=== PATIENT | female | born 1975 | race Caucasian/White ===

== ENCOUNTER 2024-05-14 00:05 | Day surgery (SDC) | payer BC, SELFPAY ==
[2024-04-27 13:31] VITALS: BMI 30.2
--- OUTSIDE RECORDS SUMMARY | 2024-05-14 00:09 | XMS_ITS | Referral Summary ---
Author Organization [facility] Address [address] [place] [address] Care Team Providers Care Body Shop Supervisor Name Role Phone Sonal Rust MD Unavailable Beverly Kwok Primary Care Provider [phone] Allergies No known active allergies Medications azelaic acid 15 % gel APPLY SMALL AMOUNT TO ENTIRE FACE EVERY DAY 12/10/19 22 Active fexofenadine (MAGDALENE) 180 mg tablet Take 1 tablet (180 mg total) by mouth daily Active lisinopriL (PRINIVIL,ZESTRIL) 20 mg tablet Take 1 tablet (20 mg total) by mouth daily 10/26/19 23 Active ondansetron ODT (ZOFRAN-ODT) 4 mg disintegrating tablet DISSOLVE 1 TABLET ON TOP OF THE TONGUE WHERE IT WILL DISSOLVE, THEN SWALLOW 4 TIMES DAILY 01/09/20 23 Active Wegovy 2.4 mg/0.75 mL auto-injector INJECT 1 SYRINGE SUBCUTANEOUSLY ONCE A WEEK 01/30/20 23 Active magnesium oxide (MAG-OX) 415 mg (250 mg elemental) tablet Active vit C-s.jenkins-celery- grape sd [id number] mg capsule Take 500 mg by mouth Active norethindrone-e.es tradioL-iron (Candi 24 Fe) 1 mg-20 mcg(24) /75 mg (4) tablet,chewable Take 1 tablet by mouth daily 84 tablet 3 01/09/20 24 Active Active Problems Problem Noted Date Diagnosed Date Screening for cervical cancer 01/17/2022 Overview (02/14/2023): 02/06/23 - ECC negative 01/06/23 - Pap negative, HPV 16 +, Non 16/18 + 01/04/22 - Pap - Negative, HPV positive, HPV 16 positive, HPV 18 negative, CT/NG & STD panel - negative Surveillance for control, oral contracepti ves 01/04/2022 Assessment & Plan (01/04/2022 3:28 PM CDT): Rx given today for oral contraceptives. Reviewed risks, benefits, side effects and use. Questions were answered and the patient seems to have a good understands of the risks and benefits. Well woman exam with routine gynecological exam 01/04/2022 Assessment & Plan (01/09/2024 11:24 AM CDT): Due to patient's history HPV were performed. Recommend self-breast exam and continued annual mammogram.. She is going to see if they have an appointment today. She is scheduled for a baseline colonoscopy. Refill on OCPs sent for 1 year. Since she is not having menses we will check her hormone levels next year and she was advised not to take the OCP for approximately 4 weeks before coming in. Assessment & Plan (01/06/2023 8:51 AM CDT): Pap smear and HPV were performed. Her 2 previous Pap smears had normal cytology but were both HPV 16 positive. Recommend self-breast exam and she is a mammogram scheduled. She is planning on a colonoscopy next year. OCP sent to pharmacy. Follow up 1 year. Assessment & Plan (01/04/2022 3:28 PM CDT): The patient was here for her well woman exam. Recommended healthy lifestyle choices including exercise, diet, & multivitamins. Recommend mammograms yearly and monthly self breast exams. Discussed importance of routine screenings with PCP regularly. Screen for STD (sexually transmitted disease) Assessment & Plan (01/04/2022 3:29 PM CDT): Check gc/ct and STD panel today. Reviewed limitations on testing today. Recommended continiued condom use. Abnormal mammogram 05/18/2021 Overview (06/19/2021): 11/2020 R breast Dx marion/US results Probably Benign.... recommend R breast US in 6 months. 06/19 R breast US results Benign... recommend to return to yearly screening mammograms. Social History Tobacco Use Types Packs/Day Years Used Date Smoking Tobacco: Never Passive Smoke Exposure: Past Smokeless Tobacco: Never AUDIT-C Answer Date Recorded Q1: How often do you have a drink containing alc ohol? 2-4 times a month 02/05/2023 Average Number of Drinks Not on file 023 Frequency of Binge Drinking Not on file 10/2022 Comments No Sex and Gender Information Value Date Recorded Sex Assigned at Not on file Legal Sex Female 8:56 PM POLL WATCHER Gender Identity Not on file Sexual Orientation Not on file Last Filed Vital Signs Vital Sign Reading Time Taken Comments Blood Pressure 122/76 02/06/2024 11:08 AM POLL WATCHER Pulse - - Temperature - - Respiratory Rate - - Oxygen Saturation - - Inhaled Oxygen Concentration - - Weight 78.9 kg (174 lb) 02/06/2024 11:08 AM POLL WATCHER Height 162.6 cm (5' 4 ) 02/06/2024 11:08 AM POLL WATCHER Body Mass Index 29.87 02/06/2024 11:08 AM POLL WATCHER Plan of Treatment Not on file Procedures Procedure Name Priority Date/Time Associated Diagnosis Comments PAP WITH REFLEX TO HIGH RISK HPV Routine 02/06/2024 11:39 AM POLL WATCHER SCREENING MAMMOGRAM BILATERAL W OMEGA Schedule Routine, Read Routine (OP Routine) 01/09/2024 11:29 AM CDT Screening mammogram, encounter for HEPATITIS C ANTIBODY Routine 01/04/2022 3:13 PM CDT Screen for STD (sexually transmitted disease) from Last 3 Months or Most Recently Relevant to Health Maintenance Results * Pap with reflex to High Risk HPV and Genotyping (Cytology Component) (02/06/2024 11:39 AM POLL WATCHER) Pap test 02/06/2024 11:3 9 AM POLL WATCHER 02/09/2024 11:41 AM POLL WATCHER Narrative 02/17/2024 11:04 AM POLL WATCHER EPIC results best viewed via link to PDF [address] [address] Tele: Chelo Forbes MD - Mate Fourth CYTOLOGY REPORT Note to Patients: This report may contain a detailed description of human tissue sent by a health care provider to the laboratory for pathologic evaluation. The content of this report is essential for diagnosis and may provide important critical findings. This information may be unfamiliar to patients to review without a medical professional present. It is advised that the patient review this report in the presence of a health care provider who can answer questions and explain the details. Patient Name: CIARAN DANIELLE Address: [address] [place] [address]- Gender: F : 1975 (Age: 48) Service: Location: N : [id number] [facility] #: [id number] Patient Type: [facility] SPECIMEN Taken: 02/06/2024 Reported: 02/17/2024 Physician(s): Sonal Rust M.D. FINAL DIAGNOSIS: SOURCE OF SPECIMEN - ThinPrep Pap w/ reflex HPV: STATEMENT OF ADEQUACY Source: Cervical/Endocervical - Satisfactory for interpretation - Endocervical /Transformation Zone component present - Case screened using computer assisted imaging technology GENERAL CATEGORIZATION: - Negative for intraepithelial lesion or malignancy INTERPRETATION: - Blood present letw/02/17/2024 11:04Franchesca James RN, CT (ASCP) Report Reviewed and Electronically Signed By Franchesca James RN, CT (ASCP)Clerical Data Follow A; G0145 CLINICAL DIAGNOSIS AND HISTORY Menstrual History: None Contraceptive History: Control Pill REPORT IMAGES AND/OR SCANNED DOCUMENTS ONLY VIEWABLE IN PDF FORMAT The Pap test is a screening test used to aid in the detection of cervical cancer and its precursors. It should not be the sole means by which malignant and premalignant lesions are diagnosed. Both false negative and false positive results may occur. It also has poor sensitivity for the detection of endometrial lesions and should not be used to evaluate suspected endometrial abnormalities. For these reasons it is most important to obtain Pap tests at regular intervals, as recommended by your physician or nurse practitioner. Frozen section, operating room consultation, gross examination and dissection, and case sign out may have been performed in part or completely in the following laboratories: [facility], [facility], [place] [address] [facility], [address] [place] [address]. Sonal Rust MD LAB CYTOLOGY ORDERABLES Final Result * Screening Mammogram Bilateral W Omega (01/09/2024 11:29 AM CDT) Anatomical Region Laterality Modality Breast Bilateral Mammography Narrative 01/09/2024 12:39 PM CDT Examination: Screening Mammogram Bilateral W Omega: 01/09/24 Clinical: Screening mammogram, encounter for. Prior Study Comparisons: Comparison was made to the prior available relevant studies at the time of interpretation. Findings: Screening Mammogram Bilateral W Omega Bilateral No significant masses, malignant type calcifications, skin thickening, nipple retraction, or significant lymphadenopathy is noted in either breast. Computer Aided Detection was utilized for the interpretation of this study. There are scattered areas of fibroglandular density. The patient will be notified of results by letter. Impression: BI-RADS ATLAS category (overall): 2 - Benign There is no mammographic evidence of malignancy. Routine Screening Mammogram in 1 Yr is recommended for bilateral Overall Assessment: 2 - Benign Self Screening Mammogram IMG MAMMO PROCEDURES Fi nal Result * Hepatitis C antibody (01/04/2022 3:13 PM CDT) Hep C Ab Nonreactive Nonreactive [facility] Comment: Interpretive Data Nonreactive: Antibodies to HCV not detected. Does NOT exclude the possibility of recent exposure to HCV. Equivocal: Equivocal for HCV antibodies. Supplemental molecular testing will be automatically performed to determine infection status in accordance with current CDC screening recommendations. Reactive: Positive for HCV antibodies. This may represent current or past HCV infection. Supplemental molecular testing will be automatically performed to determine current infection status in accordance with current CDC screening recommendations. Interpretive data was last revised on 2019. Blood 01/04/2022 3:13 PM CDT 01/04/2022 6:05 PM CDT Amita Croft NP LAB MICROBIOLOGY - GENERAL ORD ERABLES Final Result [facility] [address] [place] [address] from Last 3 Months or Most Recently Relevant to Health Maintenance Insurance [employer] [place] [employer] [place] [employer] Care Teams Body Shop Supervisor Relationship Specialty Start Date End Date Beverly Kwok PA [address] [place], [place] [id number] PCP - General Family Practice 12/30/22 Sonal Rust MD [address] [facility] [address] [place] [address] Consulting Physician Obstetrics and Gynecology 11/30/21
--- OUTSIDE RECORDS SUMMARY | 2024-05-14 00:09 | XMS_ITS | Clinical Summary ---
Author Organization [facility] Address [address] [place] [address] Care Team Providers Care Oxidation Operator Name Role Phone Sonal Rust MD Unavailable [phone] Beverly Kwok Primary Care Provider [phone] Allergies No known active allergies Medications azelaic [...] elemental) tablet Active vit C-s.jenkins-celery- grape sd [id number] mg capsule Take 500 mg by mouth [...] recommend to return to yearly screening mammograms. Surgical History Surgery Date Site/Laterality Comments SINUS SURGERY Medical History Medical History Date Comments Condyloma acuminata HPV (human papilloma virus) anogenital infection 2020: HPV 16+ on pap Hypertension Family History Medical History Relation Name Comments Diabetes Father Hypertension Father Hyperlipidemia Father's Sister Brain Aneurysm Maternal Grandfather Polio Maternal Grandmother Alcohol abuse Mother Bipolar disorder Mother Colon cancer Other PG Uncle Heart attack Paternal Grandfather Diabetes Paternal Grandmother Relation Name Status Comments Father Alive Father's Sister Alive Maternal Grandfather Maternal Grandmother Mother Alive Other PG Uncle Paternal Grandfather Paternal Grandmother Social History Tobacco Use Types Packs/Day Years [...] on file Legal Sex Female 8:56 PM PHOTOENGRAVING PRINTER Gender Identity Not on file Sexual Orientation Not on file Obstetrics History Para Term AB IAB SAB Ectopic Multiple Livin g Live Births 1 0 1 1 Date Outcome GA Total Labor Labor/2nd/3rd Weight Sex Type Anes PTL Julieta A1 A5 Name Clin 996 IAB 5w0d Comments Hpv + Last Filed Vital Signs Vital Sign Reading Time Taken Comments Blood Pressure 122/76 02/06/2024 11:08 AM PHOTOENGRAVING PRINTER Pulse - - Temperature - - Respiratory Rate - - Oxygen Saturation - - Inhaled Oxygen Concentration - - Weight 78.9 kg (174 lb) 02/06/2024 11:08 AM PHOTOENGRAVING PRINTER Height 162.6 cm (5' 4 ) 02/06/2024 11:08 AM PHOTOENGRAVING PRINTER Body Mass Index 29.87 02/06/2024 11:08 AM PHOTOENGRAVING PRINTER Plan of Treatment Health Maintenance Due Date Last Done Comments Colon Cancer Screening-Colonoscopy 1975 Depression Screening 1975 Hepatitis B Screening 1994 DTaP/Tdap/Td Vaccine (2 - Td or Tdap) 05/14/2020 05/14/2010 Covid-19 Vaccine (3 - season) 2023 02/12/2021, 01/22/2021 Influenza Vaccine (#1) 2023 Breast Cancer Screening-Mammogram 01/08/2025 01/09/2024, 01/06/2023, 01/06/2023, Additional history exists Regular Well Visit/Exam 18-64 01/08/2025 01/09/2024, 01/06/2023, 01/04/2022 Cervical Cancer Screening 02/05/20252023, 01/09/2024, 01/09/2024, Additional history exists Hepatitis C Screening Completed 01/04/2022 , 08/11/2017, 08/09/2016 Pneumococcal vaccine <65 Aged Out No longer eligible based on patient's age to complete this topic Procedures Procedure Name Priority Date/Time Associated Diagnosis Comments PAP WITH REFLEX TO HIGH RISK HPV Routine 02/06/2024 11:39 AM PHOTOENGRAVING PRINTER SCREENING MAMMOGRAM BILATERAL W OMEGA Schedule Routine, Read Routine (OP Routine) 01/09/2024 11:29 AM CDT Screening mammogram, encounter for HEPATITIS C ANTIBODY Routine 01/04/2022 3:13 PM CDT Screen for STD (sexually transmitted disease) from Last 3 Months or Most Recently Relevant to Health Maintenance Results * Pap with reflex to High Risk HPV and Genotyping (Cytology Component) (02/06/2024 11:39 AM PHOTOENGRAVING PRINTER) Pap test 02/06/2024 11:3 9 AM PHOTOENGRAVING PRINTER 02/09/2024 11:41 AM PHOTOENGRAVING PRINTER Narrative 02/17/2024 11:04 AM PHOTOENGRAVING PRINTER [facility] results best viewed via link to PDF [place] [address] [address] Tele: Chelo Forbes MD - Photographic Equipment Technician CYTOLOGY REPORT Note to Patients: This report [...] the details. Patient Name: CIARAN DANIELLE Address: [address] [place] [address]- Gender: F : 1975 (Age: 48) Service: Location: [facility] : [id number] Hospital #: [id number] Patient Type: [facility] SPECIMEN Taken: 02/06/2024 Reported: 02/17/2024 Physician(s): Sonal [...] part or completely in the following laboratories: [facility], [address] [facility], [place] [address] [facility], [address] [place] [address], [place] [address]. Sonal Rust MD LAB CYTOLOGY ORDERABLES Final [...] CDT) Hep C Ab Nonreactive Nonreactive [facility] Comment: Interpretive Data Nonreactive: Antibodies to HCV [...] - GENERAL ORD ERABLES Final Result [facility] [address] Department [place] [address] from Last 3 Months or Most Recently Relevant to Health Maintenance Insurance [employer] [place] Care Teams Oxidation Operator Relationship Specialty Start Date End Date Beverly Kwok PA [address] [place] [id number] PCP - General Family Practice 12/30/22 Sonal Rust MD [address] [facility] [address] [place] [address] Consulting Physician Obstetrics and Gynecology 11/30/21
--- OUTSIDE RECORDS SUMMARY | 2024-05-14 00:09 | XMS_ITS | Referral Summary ---
Author Organization [facility] [employer] Address [address] [place] [address] Care Team Providers Care Behavioral Consultant Name Role Phone Unavailable Primary Care Provider Unavailabl e Source Comments [facility] [employer],non-owned Affiliates and Associated Physician Practices is amultiple site organization consisting of ambulatory clinics and hospital sitesin [place], [place], [place] and [place]. This disclosure is being madepursuant to the Care Everywhere program and may not contain all information available regarding this patient. Last updated 17.[facility] [employer] Allergies No known active allergies Medications * Be aware that medications may not be up to date on this document. Alwaysverify current medications with the patient. Medication Sig Dispensed Refills Start Date End Date Status Norethin Julian-Eth Estrad-FE (MIBELAS 24 FE PO) Active Loratadine (CLARITIN PO) Active Social History Tobacco Use Types Packs/Day Years Used Date Smoking Tobacco: Never Smokeless Tobacco: Never Sex and Gender Information Value Date Recorded Sex Assigned at Not on file Gender Identity Not on file Sexual Orientation Not on file Last Filed Vital Signs Vital Sign Reading Time Taken Comments Blood Pressure 128/80 01/31/2017 2:08 PM CDT Pulse 80 01/31/2017 2:08 PM CDT Temperature 36.8 C (98.2 F) 01/31/2017 2:08 PM CDT Respiratory Rate 16 01/31/2017 2:08 PM CDT Oxygen Saturation 98% 01/31/2017 2:08 PM CDT Inhaled Oxygen Concentration - - Weight 81.6 kg (180 lb) 01/31/2017 2:08 PM CDT Height 162.6 cm (5' 4 ) 01/31/2017 2:08 PM CDT Body Mass Index 30.9 01/31/2017 2:08 PM CDT Plan of Treatment Not on file
--- OUTSIDE RECORDS SUMMARY | 2024-05-14 00:09 | XMS_ITS | Clinical Summary ---
Author Organization [facility] Address [address] [place] [address] Care Team Providers Care Rotary Planer Set Up Operator Name Role Phone Sonal Rust MD Unavailable Beverly Kwok PA-C Primary Care Provider [phone] Allergies No known active allergies Medications BRANCH 24 FE 1-20 MG-MCG(24) Chew Tab Chew 1 tablet by mouth daily. 0 Active Azelaic Acid 15 % gel APPLY SMALL AMOUNT TO ENTIRE FACE 1 2 TIMES DAILY 0 Active fexofenadine 180 MG tablet Take 180 mg by mouth daily. Active amoxicillin (AMOXIL) 500 MG capsule take 1 capsule by mouth 3 times a day until finished 3 Active fluconazole (DIFLUCAN) 150 MG tablet Take 150 mg by mouth once. 3 Active semaglutide-weigh t management (WEGOVY) 0.25 mg/dose injection (PEN)Indications: Class 1 obesity due to excess calories with serious comorbidity and body mass index (BMI) of 34.0 to 34.9 in adult Inject 0.25 mg into the skin once a week. For 4 weeks,Then follow up in office with Dr Antonio 2 mL 3 Active metoprolol tartrate (LOPRESSOR) 25 MG tabletIndications :Benign hypertension Take 1/2 tablet by mouth twice per day 90 tablet 1 3 Active Active Problems Problem Noted Date Diagnosed Date Left elbow pain 10/13/2023 Screening for cervical cancer 01/17/2022 Overview (05/24/2022): 01/04/22 - Pap - Negative, HPV positive, HPV 16 positive, HPV 18 negative, CT/NG & STD panel - negative Screen for STD (sexually transmitted disease) Overview (05/24/2022): Last Assessment & Plan: Check gc/ct and STD panel today. Reviewed limitations on testing today. Recommended continiued condom use. Surveillance for control, oral contracepti ves 01/04/2022 Overview (05/24/2022): Last Assessment & Plan: Rx given today for oral contraceptives. Reviewed risks, benefits, side effects and use. Questions were answered and the patient seems to have a good understands of the risks and benefits. Abnormal mammogram 05/18/2021 Overview (05/24/2022): 11/2020 R breast Dx marion/US results Probably Benign.... recommend R breast US in 6 months. 06/19 R breast US results Benign... recommend to return to yearly screening mammograms. Multiple thyroid nodules 03/08/2020 BMI 32.0-32.9,adult 03/08/2020 Benign hypertension 02/01/2015 Condyloma acuminatum 04/26/2011 Allergic rhinitis 04/17/2011 Resolved Problems Problem Noted Date Diagnosed Date Resolved Date Cervical high risk human pap illomavirus (HPV) DNA test positive 10/13/2020 10/13/2020 Situational depression 02/01/201503/08 Immunizations Name Administration Dates Next Due PFIZER COVID-19 (ORIGINAL FO RMULATION, PURPLE CAP) mRNA, LNP-S, PF, 30 MCG/0.3 ML DOSE 02/12/2021,01/22/2021 Tdap (Generic) 05/14/2010 Family History Medical History Relation Comments Diabetes Father Hypertension Father Cancer Mother Skin Cancer Depression Mother Relation Status Comments Father Alive Mother Alive Social History Tobacco Use Types Packs/Day Years Used Date Smoking Tobacco: Never Smokeless Tobacco: Never Tobacco Cessation:Counseling Given: Not Answered Alcohol Use Standard Drinks/Week Comments Yes 5 (1 standard drink = 0.6 oz pur e alcohol) Occasional/Social PHQ-2 Answer Date Recorded Patient Health Questionnaire-2 Score 0 05/24/2022 Comments No Sex and Gender Information Value Date Recorded Sex Assigned at Not on file Legal Sex Female 7:55 PM CDT Gender Identity Not on file Sexual Orientation Not on file Last Filed Vital Signs Vital Sign Reading Time Taken Comments Blood Pressure 139/85 05/24/2022 11:10 AM HOUSE PIPING INSPECTOR Pulse 71 05/24/2022 11:10 AM HOUSE PIPING INSPECTOR Temperature 37.5 C (99.5 F) 05/24/2022 11:10 AM HOUSE PIPING INSPECTOR Respiratory Rate 17 05/24/2022 11:1 0 AM HOUSE PIPING INSPECTOR Oxygen Saturation 97% 05/24/2022 11: 10 AM HOUSE PIPING INSPECTOR Inhaled Oxygen Concentration - - Weight 92.4 kg (203 lb 12.8 oz) 023 11:10 AM HOUSE PIPING INSPECTOR Height 162.6 cm (5' 4 ) 05/24/2022 11:1 0 AM HOUSE PIPING INSPECTOR Body Mass Index 34.98 05/24/2022 11:10 AM HOUSE PIPING INSPECTOR Plan of Treatment Health Maintenance Due Date Last Done Comments Colorectal Cancer Screening Colonoscopy (10 Years) 1975 Annual Physical 10/22/1979 Hepatitis B Vaccines (1 of 3 - 19+ 3-dose series) 10/22/1995 DTaP, Tdap and Td Vaccines (2 - Td or Tdap) 05/14/2020 05/14/2010 PHQ-2 (Physician Kapost) 05/24/2023 05/24/2022 COVID-19 Vaccine ( - season) 2023 02/12/2021, 01/22/2021 Influenza Adult (#1) 2023 PHQ-2 (Physician Kapost) 03/31/2024 05/24/2022 Mammogram Screening 01/06/2025 01/06/2023, 01/04/2022, 11/30/2020, Additional history exists Cervical Cancer Screening Pap with HPV Testing (Age 30 to 64) Every 5 Years 11/14/2025 11/14/2020 Cervical Cancer Screening Pap Smear (Age 30 to 64) Every 3 Years 01/06/2026 01/06/2023 Cervical Cancer Screening with HPV 01/06/2026 Hepatitis C Completed 03/08/2020 Meningococcal B Vaccine Aged Out No l onger eligible based on patient's age to complete this topic Meningococcal Vaccine Aged Out No marcello zully eligible based on patient's age to complete this topic Pneumococcal Vaccine: Pediatrics (0 to 5 Years) and At-Risk Patients (6 to 64 Years) Aged Out No longer eligible based on patient's age to complete this topic RSV Immunizations Under 20 Months Aged Out No longer eligible based on patient's age to complete this topic Procedures Procedure Name Priority Date/Time Associated Diagnosis Comments OUTSIDE CYTOPATH CERV/VAG INTERPRET (PAP) Routine 11/14/2020 HEPATITIS C ANTIBODY Routine 03/08/2020 8:40 AM HOUSE PIPING INSPECTOR Encounter for hepatitis C screening test for low risk patient from Last 3 Months or Most Recently Relevant to Health Maintenance Results * PAP SMEAR WITH HPV (11/14/2020) 11/14/2020 us Documents Scanned SCANNING Final Result [facility] * HEPATITIS C ANTIBODY (03/08/2020 8:40 AM HOUSE PIPING INSPECTOR) HEPATITIS C AB NON-REACTI VE NON-REACTI VE 03/08/2020 8:31 PM HOUSE PIPING INSPECTOR [facility] 03/08/2020 8:40 AM HOUSE PIPING INSPECTOR us Herb Tadeo MD LABORATORY Final Res ult [facility] [address] [place] [address], [place] [phone] from Last 3 Months or Most Recently Relevant [place] [address] [facility] Care Teams Rotary Planer Set Up Operator Relationship Specialty Start Date End Date Beverly Kwok PA-C [address] [place] [address] PCP - General PHYSICIAN BARBER APPRENTICE 10/08/23 Sonal Rust MD [address] [facility] [address] [place] [address] Consulting Physician OBLESLYN 03/08/20
--- OUTSIDE RECORDS SUMMARY | 2024-05-14 00:09 | XMS_ITS | Clinical Summary ---
Author Organization [facility] [employer] Address [address] [place] [address] Care Team Providers Care Concession Cashier Name Role Phone Unavailable Primary Care Provider Unavailabl e Source Comments [facility] [employer],non-owned Affiliates and Associated Physician Practices is amultiple site organization consisting of ambulatory clinics and hospital sitesin [place], [place], [place] and [place]. This disclosure is being madepursuant to the Care Everywhere program and may not contain all information available regarding this patient. Last updated 17.[facility] [employer] Allergies No known active allergies Medications * Be aware that medications may not be up to date on this document. Alwaysverify current medications with the patient. Medication Sig Dispensed Refills Start Date End Date Status Norethin Julian-Eth Estrad-FE (MIBELAS 24 FE PO) Active Loratadine (CLARITIN PO) Active Family History Medical History Relation Name Comments Diabetes - Type 2 Father Hypertension Father Cancer - Skin, Non Melanoma Mother Relation Name Status Comments Father Mother Social History Tobacco Use Types Packs/Day Years [...] 01/31/2017 2:08 PM CDT Plan of Treatment Health Maintenance Due Date Last Done Comments COLOGUARD (AGES 45-75) - COL ON CA SCREENING 1976 COLON MONITORING 1976 COLONOSCOPY - COLON CA SCREENING 1976 CT COLONOGRAPHY - COLON CA SCREENING 1976 Colorectal Cancer Screening 1976 FIT - COLON CA SCREENING 1976 FLEX SIG - COLON CA SCREENING 1976 LIPID TESTING 1976 MAMMOGRAM 1976 PAP SMEAR 1976 HIV SCREENING 10/22/1991 HEPATITIS C SCREENING 10/17/1994 DTAP/TDAP/TD VACCINES (1 - Tdap) 10/22/1995 HEPATITIS B VACCINE (1 of 3 - 19+ 3-dose series) 10/22/1995 SCREENING FOR DIABETES 01/31/2017 COVID-19 VACCINE (1 - 2023-2 5 season) 2023 INFLUENZA VACCINE (#1) 2023 DEPRESSION SCREENING 03/31/2024 ZOSTER VACCINE (1 of 2) 2026 HIB VACCINE Aged Out No longer eligi ble based on patient's age to complete this topic HPV VACCINE Aged Out No longer eligi ble based on patient's age to complete this topic MENINGOCOCCAL (Group B) VACCINE Aged Out No longer eligible based on patient's age to complete this topic MENINGOCOCCAL VACCINE Aged Out No marcello zully eligible based on patient's age to complete this topic PNEUMOCOCCAL VACCINE Aged Out No long er eligible based on patient's age to complete this topic
--- OUTSIDE RECORDS SUMMARY | 2024-05-14 00:09 | XMS_ITS | Clinical Summary ---
Author Organization [facility] Address [address] [place] [address] Care Team Providers Care Jira Developer Name Role Phone Unavailable Primary Care Provider Unavailabl e Allergies No known active allergies Medications fexofenadine (MAGDALENE ALLERGY) 180 mg Oral tablet Take 180 mg by mouth 1 time daily as needed. Active MINASTRIN 24 FE 1 mg-20 mcg(24) /75 mg (4) Oral Chew 12/09/2012 Active buPROPion (WELLBUTRIN) 100 mg tablet Take 1 Tablet (100 mg) by mouth daily. 30 Tablet 11 07/20/2015 Active hydrocortisone 1 % LotionIndicatio ns:Pityriasis rosea-like skin eruption Apply to affected area 2 times daily. 118 mL 0 11/23/2015 Active Active Problems Patient Care Coordination No te Formatting of this note migh t be different from the original. Resident PCP - KRUNAL MARC MD Problem Noted Date Diagnosed Date Major depression 02/01/2015 Benign hypertension 02/01/2015 Allergic rhinitis 04/17/2011 Resolved Problems Problem Noted Date Diagnosed Date Resolved Date Viral URI 01/02/2011 04/17/2011 Immunizations Immunization Administration Dates Next Due (ADACEL/BOOSTRIX)(10 YR UP) TDAP VACCINE, 0.5ML, IM 05/14/2010 Family History Medical History Relation Name Comments Diabetes Father Hypertension Father Bipolar Disorder Mother Relation Name Status Comments Father Maternal Grandfather Mother Alive Paternal Grandfather Sister Alive Social History Tobacco Use Types Packs/Day Years Used Date Smoking Tobacco: Never Smokeless Tobacco: Never Alcohol Use Standard Drinks/Week Comments No 0 (1 standard drink = 0.6 oz pur e alcohol) Comments No Sex and Gender Information Value Date Recorded Sex Assigned at Not on file Legal Sex 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 Gender Identity Not on file Sexual Orientation Not on file 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 Not on file Not on file Not on file Last Filed Vital Signs Vital Sign Reading Time Taken Comments Blood Pressure 112/76 12/15/2015 11:05 AM CDT Pulse 84 12/15/2015 11:05 AM CDT Temperature 36.9 C (98.4 F) 12/15/2015 11:05 AM CDT Respiratory Rate 18 12/31/2012 8:22 AM CDT Oxygen Saturation 98% 12/15/2015 11:05 AM CDT Inhaled Oxygen Concentration - - Weight 82.1 kg (181 lb) 12/15/2015 11:05 AM CDT Height 162.6 cm (5' 4 ) 11/30/2015 2:47 PM CDT Body Mass Index 31.07 11/30/2015 2:47 PM CDT Plan of Treatment Health Maintenance Due Date Last Done Comments HEPATITIS B VACCINES (1 of 3 - 19+ 3-dose series) 10/22/1995 CERVICAL CANCER SCREENING 2006 BREAST CANCER SCREENING 2016 DTAP/TDAP/TD VACCINES (2 - T d or Tdap) 05/14/2020 05/14/2010 COLORECTAL SCREENING 2021 Colorectal Cancer Screening 2021 FIT-DNA Q 3 years 2021 FIT/FOBT Q 1 year 2021 Flex Sig/CT Colonography Q 5 years 2021 INFLUENZA VACCINE (#1) 2023 PNEUMOCOCCAL VACCINE 0-64 YEARS Aged Out No longer eligible based on patient's age to complete this topic Insurance BCBS BLUE ACCESS/TRUE BLUE PPO
--- OUTSIDE RECORDS SUMMARY | 2024-05-14 00:09 | XMS_ITS | Patient Health Summary ---
Author Organization [facility] [employer] Address [address] [place] [address] Care Team Providers Care Journalism Professor Name Role Phone Unavailable Primary Care Provider Unavailabl e Note from [facility],non-owned Affiliates and Associated Physician Practices is amultiple site organization consisting of ambulatory clinics and hospital sitesin [place], [place], [place] and [place]. This disclosure is being madepursuant to the Care Everywhere program and may not contain all information available regarding this patient. Last updated 17.[facility] [employer] Allergies No known active allergies Medications * Be aware that medications may not be up to date on this document. Alwaysverify current medications with the patient. * Norethin Julian-Eth Estrad-FE (MIBELAS 24 FE PO) * Loratadine (CLARITIN PO) Social History Tobacco Use Types Packs/Day Years [...] Mass Index 30.9 01/31/2017 2:08 PM CDT Procedures * STREP A SCREEN - POINT OF CARE (AMB) STL(Performed 01/31/2017) Performed for Acute pharyngitis, unspecified etiology * CULTURE STREP GROUP A(Performed 01/31/2017) Performed for Acute pharyngitis, unspecified etiology Results * STREP A SCREEN - POINT OF CARE (AMB) STL (01/31/2017 2:31 PM CDT) Strep A Rapid POCT Negative Negative Strep A Internal Control Present Lot # [id number] Expiration Date 08 30 2018 Throat ENTIRE THROAT (SURFACE REGION OF NECK) / Unknown 01/31/2017 2:31 PM CDT Citlalli Galeano APRN-AIR POLLUTION INSPECTOR LAB - POINT OF CA RE ORDERABLES * CULTURE STREP GROUP A (01/31/2017 2:21 PM CDT) Beta-Strep Culture, Group A Only Negative [facility] ACCOUNT BILL Microbiology ENTIRE THROAT (SURFACE REGION OF NECK) / Unknown 01/31/2017 2:21 PM CDT 01/31/2017 Narrative Resulting Agency Comment [facility] [address] [id number] Citlalli Galeano APRN-AIR POLLUTION INSPECTOR LAB - MICROBIOLOG Y ORDERABLES [facility] ACCOUNT BILL [address] [place] [address]
[2024-05-14 06:13] VITALS: BP 132/80; PULSE 70; RESP 18; TEMP 36.6; O2SAT 99; BMI 29.7
[2024-05-14] MEDS: LACTATED RINGERS 1,000 ML 150 ML IV CONT (06:30)
--- NOTE | 2024-05-14 06:56 | WPDANESEPPF ---
Anes - Initial Pre Proc Eval Procedure: Operation Date: 05/14/24 07:30 Proposed Procedures p Screening Colonoscopy - Mikie Edmonds MD Date/Time: 05/14/24 06:56 Surgeon: Mikie Edmonds MD Pre Op Diagnosis: Neoplasm screening rectum/colon Patient Data Age: 48 Gender: F Height: 1.6 m Weight: 76 kg Last Vital Signs Temp 36.6 C 05/14/24 06:13 Pulse 70 05/14/24 06:13 Resp 18 05/14/24 06:13 BP 132/80 05/14/24 06:13 Pulse Ox 99 05/14/24 06:13 O2 Del Method Room Air 05/14/24 06:13 Allergies Allergy/AdvReac Type Severity Reaction Status Date / Time No Known Allergies Allergy Verified 05/14/24 06:18 Home Medications ?Medication ?Instructions ?Recorded ?Confirmed ?Type azelaic acid 15 % topical gel 1 applic topical BID 10/11/22 05/14/24 History norethindrone 1 mg-e. estradiol 20 1 tablet PO DAILY 10/11/22 05/14/24 History mcg (24)-iron 75 mg (4) chew tablet (Candi 24 Fe) ascorbic acid (vitamin C) 500 mg 500 mg PO DAILY 01/07/24 05/14/24 History tablet biotin 5,000 mcg chewable tablet 5,000 mcg PO DAILY 01/07/24 05/14/24 History magnesium 250 mg tablet 250 mg PO DAILY 01/07/24 05/14/24 History multivitamin 1 tablet PO DAILY 01/07/24 05/14/24 History semaglutide (weight loss) 1.7 1.7 mg (0.75 mL) subcut WEEKLY #3 01/27/24 05/14/24 Rx mg/0.75 mL subcutaneous pen mL injector (Wegovy) lisinopril 20 mg tablet 20 mg PO DAILY #90 tabs 04/01/24 05/14/24 Rx Patient hx anesthesia problems: none Family hx anesthesia problems: none Results Review: All pre-operative results and documents have been reviewed as part of the pre-operative evaluation. [facility] Past Medical History Medical History Hypertension Surgical History Surgical History History of sinus surgery (~1999) Family History Family History Father Alcoholism Type 2 diabetes mellitus Hypertension Mother Alcoholism Skin cancer Depression Grandparent Type 2 diabetes mellitus Hypertension Heart disease Social History Social History Social History: 01/20/24 very confident with medical forms Smoking status: Never smoker Alcohol intake: current Drinks per week: 1 Substance use: never Substance use type: does not use Do You Feel Safe in your Home?: Yes Lack of Transportation: No Lack of Food: Never True Current Housing: I Have Housing Concerned About Future Housing: No Difficulty Paying Gas/Electric Bills: No Difficulty Paying for Meds: No Currently Unemployed: No Education: Master's Degree or Higher Difficulty w/ Childcare or Family Care: No Living arrangements: alone Occupation/Education: occupation 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 [employer] Gender identity (if verbalized by the patient): Female Sexual Orientation (if Verbalized by the Patient): Straight or Heterosexual Spiritual care concerns: No Agree to blood products: Yes Anes - Eval Final PreProcedure Day of Procedure 05/14/24 06:56 Patient weight: overweight Heart: regular rate and rhythm Lungs: clear to auscultation Airway: Mallampati scale class II Neurological: alert and oriented Last oral intake: >/= 8 hours ASA classification: II Emergent: no Anesthetic plan: proceed Anesthesia type and monitoring: general GIVS and standard monitoring Results Review: All pre-operative results and documents have been reviewed as part of the pre-operative evaluation. Informed Consent: The patient's anesthetic plan and its attendant risks and benefits were discussed with the patient/family/POA. Questions were solicited and answers provided to the satisfaction of the patient/family/POA.
--- NOTE | 2024-05-14 07:26 | PM.HPGS ---
History of Present Illness History of Present Illness Consent: Risks, benefits, and alternatives have been discussed and questions answered. Patient agrees to proceed with procedure. Chief complaint: Neoplasm screening rectum/colon Narrative: Faiza Danielle is a 48 year old female here for first screening colonoscopy Review of Systems Review of Systems: All systems reviewed & are unremarkable except as noted in HPI and below PMFSH Past Medical History Medical History (Updated 05/14/24 @ 07:27 by Mikie Edmonds MD) Colon cancer screening Hypertension Surgical History Surgical History History of sinus surgery (~1999) Family History Family History Father Alcoholism Type 2 diabetes mellitus Hypertension Mother Alcoholism Skin cancer Depression Grandparent Type 2 diabetes mellitus Hypertension Heart disease Social History Social History Social History: 01/20/24 very confident with medical forms Smoking status: Never smoker Alcohol intake: current Drinks per week: 1 Substance use: never Substance use type: does not use Do You Feel Safe in your Home?: Yes Lack of Transportation: No Lack of Food: Never True Current Housing: I Have Housing Concerned About Future Housing: No Difficulty Paying Gas/Electric Bills: No Difficulty Paying for Meds: No Currently Unemployed: No Education: Master's Degree or Higher Difficulty w/ Childcare or Family Care: No Living arrangements: alone Occupation/Education: occupation 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 Gender identity (if verbalized by the patient): Female Sexual Orientation (if Verbalized by the Patient): Straight or Heterosexual Spiritual care concerns: No Agree to blood products: Yes Meds Home Medications and Allergies Home Medications ?Medication ?Instructions ?Recorded ?Confirmed ?Type azelaic acid 15 % topical gel 1 applic topical BID 10/11/22 05/14/24 History norethindrone 1 mg-e. estradiol 20 1 tablet PO DAILY 10/11/22 05/14/24 History mcg (24)-iron 75 mg (4) chew tablet (Candi 24 Fe) ascorbic acid (vitamin C) 500 mg 500 mg PO DAILY 01/07/24 05/14/24 History tablet biotin 5,000 mcg chewable tablet 5,000 mcg PO DAILY 01/07/24 05/14/24 History magnesium 250 mg tablet 250 mg PO DAILY 01/07/24 05/14/24 History multivitamin 1 tablet PO DAILY 01/07/24 05/14/24 History semaglutide (weight loss) 1.7 1.7 mg (0.75 mL) subcut WEEKLY #3 01/27/24 05/14/24 Rx mg/0.75 mL subcutaneous pen mL injector (Helium) lisinopril 20 mg tablet 20 mg PO DAILY #90 tabs 04/01/24 05/14/24 Rx Allergies Allergy/AdvReac Type Severity Reaction Status Date / Time No Known Allergies Allergy Verified 05/14/24 06:18 Vital Signs Vital Signs - 24 hr 05/14/24 06:13 Temperature 97.9 F Pulse Rate 70 Respiratory Rate 18 Blood Pressure 132/80 Pulse Oximetry 99 Oxygen Delivery Room Air Exam Const: General: comfortable and no acute distress HENMT: Face/Nose/Sinus: Normal nares present Eyes: General: appearance normal, both eyes and all related structures Neck: Neck: no JVD Resp: Auscultation: clear to auscultation bilaterally Cardio: Rate: regular rate Rhythm: regular rhythm GI: Inspection: non-distended GI Palp: Yes Soft to palpation Skin: General skin exam: normal color Neuro: General: gait normal Speech: normal speech Extrem: General: normal to inspection Psych: Mental Status: mental status grossly normal Assessment and Plan Assessment and plan (1) Colon cancer screening: Code(s): Z12.11 - Encounter for screening for malignant neoplasm of colon Status: Acute Assessment and Plan: colonoscopy
[2024-05-14 07:39] VITALS: BP 96/56; PULSE 77; RESP 20; O2SAT 99
[2024-05-14 07:41] LABS: BEDSIDEPREGUCG Negative (Negative)
[2024-05-14 07:49] VITALS: BP 122/64; PULSE 71; RESP 17; O2SAT 100
[2024-05-14 07:59] VITALS: BP 114/69; PULSE 73; RESP 22; O2SAT 99
== END 2024-05-14 08:09 | disposition home or self-care (01) ==
PROVIDERS: PCP Physician Assistant Medical; Visit Provider Internal Medicine Gastroenterology
PROC: 0DJD8ZZ Inspection of Lower Intestinal Tract, Via Natural or Artificial Opening Endoscopic (ICD-10-PCS; CPT 45378; principal; 2024-05-14 07:30)
DX: Z12.11 Encounter for screening for malignant neoplasm of colon (principal)
CPT/HCPCS: 45378; J2704; J7120